=== PATIENT | female | born 1960 | race Caucasian/White ===

== ENCOUNTER → 2022-07-08 | Outpatient (CLI) | payer OTHER, SELFPAY ==
--- NOTE | 2022-07-08 13:48 | RAD_ITS ---
STUDY: X-RAY - BILATERAL RIBS REASON FOR EXAM: Female, 61 years old. RIB PAIN TECHNIQUE: 4 view(s) of the ribs. COMPARISON: None. FINDINGS: Normal visualized ribs without a demonstrated fracture. Probable calcified granuloma 3 mm in diameter left upper lobe. Normal heart, mediastinum and pulmonary ulises. RAD/Ribs Bilat 3V No CXR IMPRESSION: Ribs appear intact bilaterally. Probable calcified granuloma left upper lobe. Electronically Signed: Tacos Huerta MD, BRADY at 17:10 EDT ,
--- NOTE | 2022-07-08 13:48 | RAD_ITS ---
STUDY: X-RAY - RIGHT HAND, ATTENTION FINGER REASON FOR EXAM: Female, 61 years old. THUMB PAIN TECHNIQUE: 3 view(s) of the finger were obtained. COMPARISON: None. FINDINGS: There is moderate osteoarthritis at the articulation of the greater multangular with the base of the first metacarpal. Mild osteoarthritis first MCP and IP joints. Soft tissues normal. RAD/Finger(s) Min 2 Views IMPRESSION: Osteoarthritis as above. Electronically Signed: Tacos Huerta MD, BRADY at 17:09 EDT ,
== END | disposition home or self-care (01) ==
LOC: MTRAD 13:46
PROVIDERS: PCP Family Medicine; Referring Provider Family Medicine; Visit Provider Family Medicine
DX: R07.81 Pleurodynia (principal); M79.644 Pain in right finger(s)
CPT/HCPCS: 71110; 73140

== ENCOUNTER → 2023-09-01 | Outpatient (CLI) | payer OTHER, SELFPAY ==
--- NOTE | 2023-09-01 13:46 | RAD_ITS ---
STUDY: X-RAY - CERVICAL SPINE REASON FOR EXAM: Female, 62 years old. cerivcal pain TECHNIQUE: 5 view(s) of the cervical spine were obtained. COMPARISON: None FINDINGS: Normal anterior atlantoaxial articulation. Normal odontoid process. Normal cervical lordosis. Mild retrolisthesis of C5 otherwise normal alignment. Spondylosis and loss of disc height at C5-C6. Otherwise normal vertebral bodies and endplates. Otherwise unremarkable disc space heights. Narrowing of the neural foramina bilaterally at C5-C6 related to osteophytes. The soft tissue structures are unremarkable. There is no demonstrated fracture of the cervical spine. RAD/Cerv Spine 4 or 5 Views IMPRESSION: No acute abnormality. Degenerative changes localized to C5-C6. Electronically Signed: Joaquín Josue MD at 20:00 EST ,
== END | disposition home or self-care (01) ==
PROVIDERS: PCP Family Medicine; Referring Provider Family Medicine; Visit Provider Family Medicine
DX: M54.2 Cervicalgia (principal)
CPT/HCPCS: 72050

== ENCOUNTER → 2023-09-27 | Outpatient (CLI) | payer OTHER, SELFPAY ==
[2023-09-27 12:21] LABS: Absolute Lymphocyte Count 1.82 X10^3/uL (0.83-4.51); Absolute Neutrophil Count 2.2 X10^3/uL (2.0-7.7); Basophil# 0.02 X10^3/uL; Basophil% 0.5 % (0-1); Eosinophil# 0.05 X10^3/uL; Eosinophils% 1.1 % (0-5); Hemoglobin 14.6 g/dL (12.0-15.0); Lymphocyte # 1.82 X10^3/ul (0.83-4.51); Mean Corp Hgb Conc 31.7 g/dL (32-36); Mean Corpuscular Hgb 30.5 pg (27.0-32.0); Mean Corpuscular Volume 96.2 fL (81-99); Mean Platelet Vol. 12.3 fl (6.2-12.0); Monocyte# 0.39 X10^3/uL; Monocyte% 8.8 % (0-10); NRBC Flagged by Analyzer 0 % (0-5); Neutrophil # 2.15 X10^3/uL (2.7-7.7); Neutrophil % 48.4 % (47-70); Platelet Count 171 K/mm3 (150-450); RBC Distribution Width CV 13.2 % (11.6-14.6); RBC Distribution Width SD 47.1 fl (35.1-43.9); Red Blood Count 4.78 M/mm3 (4.2-5.4); White Blood Count 4.4 K/mm3 (4.4-11.0)
[2023-09-27 12:54] LABS: AST(SGOT) 20 U/L (15-37); Alanine Aminotransfer ALT/SGPT 28 U/L (13-56); Albumin, Serum 3.6 g/dL (3.2-5.0); Alkaline Phosphatase 69 U/L (45-117); Anion Gap 7 (5-15); BUN 28 mg/dL (7-18); BUN/Creat Ratio 26.7 RATIO (10-20); Calcium,Total 8.9 mg/dL (8.5-10.1); Chloride 106 mmol/L (98-107); Cholesterol 242 mg/dL (200); Creatinine, Serum 1.05 mg/dL (0.55-1.02); EST Glomerular Filtration Rate 56 mL/min (>60); Est Glom Filt Rate - Afr Amer 68 mL/min (>60); Globulin 3.6 g/dL (2.2-4.2); Glucose 74 mg/dL (74-106); High Density Lipoprotein 86 mg/dL; Potassium 4.1 mmol/L (3.5-5.1); Protein, Total 7.2 g/dL (6.4-8.2); Sodium Level 140 mmol/L (136-145); Triglycerides 68 mg/dL; Very Low Density Lipoprotein 14 mg/dL (5-40)
== END | disposition home or self-care (01) ==
LOC: MFPLAB 10:02
PROVIDERS: PCP Family Medicine; Visit Provider Family Medicine
DX: Z01.419 Encounter for gynecological examination (general) (routine) without abnormal findings (principal)
CPT/HCPCS: 36415; 80053; 80061; 84443; 85025

== ENCOUNTER → 2023-10-05 | Outpatient (CLI) | payer OTHER, SELFPAY ==
[2023-10-05 13:36] LABS: Anion Gap 6 (5-15); BUN 24 mg/dL (7-18); BUN/Creat Ratio 20.3 RATIO (10-20); Calcium,Total 9.7 mg/dL (8.5-10.1); Chloride 107 mmol/L (98-107); Creatinine, Serum 1.18 mg/dL (0.55-1.02); EST Glomerular Filtration Rate 49 mL/min (>60); Est Glom Filt Rate - Afr Amer 59 mL/min (>60); Glucose 82 mg/dL (74-106); Potassium 4.1 mmol/L (3.5-5.1); Sodium Level 139 mmol/L (136-145)
== END | disposition home or self-care (01) ==
PROVIDERS: PCP Family Medicine; Referring Provider Family Medicine; Visit Provider Family Medicine
DX: R94.4 Abnormal results of kidney function studies (principal)
CPT/HCPCS: 36415; 80048

== ENCOUNTER → 2023-10-14 | Outpatient (CLI) | payer OTHER, SELFPAY ==
[2023-10-14 09:21] LABS: Bacteria 0 SEEN /hpf (None Seen); Mucous, Urine 0 SEEN /hpf (<or=2+); Red Blood Cells-Urine 0 SEEN /hpf (0-5); Squamous Epithelial Cells - UA 0 SEEN /hpf (5-10)
[2023-10-14 10:13] LABS: Color, Urine Yellow (Yellow); Glucose, Dipstick Normal (Normal); Ketone-Dipstick Negative (Negative); Leukocyte Esterase-Dipstick 25 /ul (Negative); Nitrite-Dipstick Negative (Negative); Occult Blood-Urine 10 /ul (Negative); Protein-Dipstick 15 mg/dl (Negative); Specific Gravity, Urine 1.025 (1.002-1.030); Urine Bilirubin Dipstick Negative (Negative); Urine Clarity Clear (Clear); Urine Urobilinogen Normal (Normal)
[2023-10-14 10:19] LABS: White Blood Cells 0-5 SEEN /hpf (0-5)
[2023-10-14 10:27] LABS: Protein:Creat Ratio 79 mg/g CRE (0-200)
[2023-10-14 10:37] LABS: PTHIN 24.1 pg/mL (18.4-80.1)
[2023-10-14 10:39] LABS: Vitamin D,25 Hydroxy 52.2 ng/mL
[2023-10-14 10:43] LABS: Anion Gap 4 (5-15); BUN 27 mg/dL (7-18); BUN/Creat Ratio 24.5 RATIO (10-20); Calcium,Total 10.1 mg/dL (8.5-10.1); Chloride 108 mmol/L (98-107); EST Glomerular Filtration Rate 53 mL/min (>60); Est Glom Filt Rate - Afr Amer 64 mL/min (>60); Glucose 110 mg/dL (74-106); Magnesium 2.5 mg/dL (1.6-2.6); Phosphorus 2.8 mg/dL (2.5-4.9); Potassium 3.8 mmol/L (3.5-5.1); Sodium Level 138 mmol/L (136-145)
== END | disposition home or self-care (01) ==
LOC: MFPLAB 09:15
PROVIDERS: PCP Family Medicine; Visit Provider Family Medicine
DX: N18.30 Chronic kidney disease, stage 3 unspecified (principal); E83.2 Disorders of zinc metabolism
CPT/HCPCS: 36415; 80048; 81001; 82306; 82570; 83735; 83970; 84100; 84156

== ENCOUNTER → 2023-10-17 | Outpatient (CLI) | payer MEDICARE, OTHER, SELFPAY ==
[2023-10-21 14:10] LABS: HPV APTIMA, High Risk Negative (Negative)
[2023-10-21 16:57] LABS: HPV Reflexed? YES, CHARGE PATIENT
== END | disposition home or self-care (01) ==
PROVIDERS: PCP Family Medicine; Visit Provider Family Medicine
DX: Z12.4 Encounter for screening for malignant neoplasm of cervix (principal)
CPT/HCPCS: 87624; 88175; G0145

== ENCOUNTER 2023-11-18 08:30 | Outpatient (RCR) | payer MEDICARE, OTHER, SELFPAY ==
--- NOTE | 2023-09-30 11:42 | HP.PTEVAL ---
Patient's Visit Information Visit Information Visit Information: NICK BERGER is a 62 year old F referred to Physical Therapy by Dr. Anatoly Mckeon MD with a diagnosis of NECK PAIN. Date of Evaluation: 09/30/23 Physical Therapist: Matthew Thompson, PT, Cert MDT, OCS Visit Plan Frequency: 2x /Week Duration: 4 Weeks Plan: PT INTERVETIONS CERVICAL ROM ,POSTURAL/STRENGTHNEING EX'S ,MANUAL THERAPY STM/CERVICAL TRACTION ,US ,MHP AND PATIENT EDUCATION AND NADYA E/S Subjective Subjective: This 62 y/o female presents to physical therapy with neck pain . Patient has had cervical pain since many years . Patient pain has progressed overtime since 38 y/o's . Patient seen DR recommended PT ,and x-rays DDD . No medication. Patient has seen chiropractor and massage therapy. Pain located right cervical left to UT . Aggravating factors turning ,reading ,flexion . Alleviating massage and chiropractor and vitamins. Denies paranesthesia/tingling-.Patient denies STEVEN/dizziness/nausea. Patient condition can affects sleep . Pain feels like needs cracked. Patient has no trauma recently but had swimming diving face many years ago. Patient condition affects QOL and function/job demands. Patient goals to decrease pain. SOCIAL: VOCATION: self employeed Pain Bilateral Neck: Pain Intensity (Out of 10): 8 Pain Intensity Range: 10 Objective Objective: POSTURE: mild forward posture PALPATION: tender UT/Levator NEURO: denies paresthesia/tingling ,reflexes C5-6-7 2/3 AROM: BUE WFL CERVICAL ROM: flexion min loss ,rotation /lateral flexion mod loss ,extension min loss ,retraction in loss MMT: BUE grossly 4/5 Special Tests C/S Radiculapathy - Left Upper limb tension test: Negative C/S Radiculapathy - Right Upper limb tension test: Negative C/S Radiculapathy - Left Spurlings: Positive C/S Radiculapathy - Right Spurlings: Positive C/S Radiculapathy - Left Cervical distraction: Negative C/S Radiculapathy - Right Cervical distraction: Negative C/S Radiculapathy - Left Relief test: Negative C/S Radiculapathy - Right Relief test: Negative Sharp Carlos: Negative Vertebral Artery Test: Negative Alar Ligament Test: Negative Balance/Special Test Scores Oswestry Neck Score: 20 Goals Goal 1:: Patient to be I with HEP Goal Time Frame: 4-6 Weeks Goal 2:: Patient to improve posture for ADLS to manage pain Goal Time Frame: 4-6 Weeks Goal 3:: Patient to improve cervical ROM for function to rive car for turning neck Goal Time Frame: 4-6 Weeks Goal 4:: Patient to to demonstrate 50% improvement with decrease pain and improved function Goal Time Frame: 4-6 Weeks Goal 5:: Patient improve neck oswestry score by 5 points to improve QOL Goal Time Frame: 4-6 Weeks Rehabilitation Potential Physical Therapy Diagnosis: Patient has cervical pain with possible derangement with pain with positioning and motion testing ,decrease function ,decrease cervical ROM thus benefit from skilled PT Rehabilitation Potential: Good Anticipated Interventions Patient/Client Instruction: Educate patient on: Condition and Plan of Care For the Purpose of:: To decrease pain, To increase ROM, To improve muscle performance and motor function, To improve ability to perform ADL's, To increase tolerance to activity/condition/position, To improve ability of physical actions for home/community/work/leisure, To improve gait and locomotor functions, To improve health of tissue, To decrease soft tissue restriction, To increase flexibility/ROM, To improve endurance, To improve balance and To improve tolerance to ADL's Therapeutic Exercise to Include: Strength training, Body mechanics, Postural training, Flexibilty training and Dynamic Lumbar Stabilization For the Purpose of:: To decrease pain, To increase ROM, To improve muscle performance and motor function, To improve ability to perform ADL's, To increase tolerance to activity/condition/position, To improve ability of physical actions for home/community/work/leisure, To improve health of tissue and To decrease soft tissue restriction Manual Therapy Techniques to Include: Mobilization and Soft tissue mobilization Comment: CERVICAL For the Purpose of:: To decrease pain, To increase ROM, To improve nutrient delivery to tissue, To increase oxygenation perfusion, To improve health of tissue and To decrease soft tissue restriction Text: Thank you for the opportunity to evaluate your patient. For Medicare and Medicare HMO plans, please review the plan of care and approve it. It will need to be FAXED BACK to us at [phone] for Medicare purposes. For Medicare only, by signing this I certify the plan of care. Please let me know if there are questions or concerns regarding this plan of care. Physician Signature: Date:
--- NOTE | 2024-01-06 12:41 | HP.PT.NRP ---
Patient Information Patient Information: NICK BERGER was seen in my office for initial evaluation on 09/30/23. The following Plan of Care was established for this patient: POC Established Initial Frequency: 2x /Week Initial Duration: 4 Weeks Anticipated Interventions Patient/Client Instruction: Educate patient on: Condition and Plan of Care For the Purpose of:: To decrease pain, To increase ROM, To improve muscle performance and motor function, To improve ability to perform ADL's, To increase tolerance to activity/condition/position, To improve ability of physical actions for home/community/work/leisure, To improve gait and locomotor functions, To improve health of tissue, To decrease soft tissue restriction, To increase flexibility/ROM, To improve endurance, To improve balance and To improve tolerance to ADL's Therapeutic Exercise to Include: Strength training, Body mechanics, Postural training, Flexibilty training and Dynamic Lumbar Stabilization For the Purpose of:: To decrease pain, To increase ROM, To improve muscle performance and motor function, To improve ability to perform ADL's, To increase tolerance to activity/condition/position, To improve ability of physical actions for home/community/work/leisure, To improve health of tissue and To decrease soft tissue restriction Manual Therapy Techniques to Include: Mobilization and Soft tissue mobilization Comment: CERVICAL For the Purpose of:: To decrease pain, To increase ROM, To improve nutrient delivery to tissue, To increase oxygenation perfusion, To improve health of tissue and To decrease soft tissue restriction Last Seen Last Seen: This patient was last seen in our office . Pertinent comments regarding their Physical therapy will appear below: Patient was seen for 6 visits for PT for neck pain thus d/c . At this point I will be discontinuing this patient from physical therapy. I would be happy to see this patient again in the future if found appropriate by the physician. Thank you! Matthew Thompson, PT, Cert MDT, OCS Balance/Gait/Functional tests Balance/Special Test Scores Oswestry Neck Score: 20
== END 2023-11-18 19:00 | disposition home or self-care (01) ==
LOC: PT 08:30
PROVIDERS: PCP Family Medicine; Referring Provider Family Medicine; Visit Provider Family Medicine
DX: M54.2 Cervicalgia (principal)
CPT/HCPCS: 97110; 97140; 97162